=== PATIENT | female | born 1990 | race African-American/Black ===

== ENCOUNTER 2019-12-27 23:34 | Inpatient (IN) ==
[2019-12-27 23:49] VITALS: BMI 36.4
[2019-12-28 00:10] LABS: BILIRUBIN,URINE NEGATIVE (NEGATIVE); BLOOD/HEMOGLOBIN,URINE 3+ (NEGATIVE); GLUCOSE, URINE NEGATIVE (NEGATIVE); KETONES,URINE 4+ (NEGATIVE); LEUKOCYTE ESTERASE ,URINE 1+ (NEGATIVE); NITRITES,URINE NEGATIVE (NEGATIVE); PROTEIN,URINE 2+ (NEGATIVE); UROBILINOGEN,URINE NORMAL (NORMAL)
[2019-12-28 00:13] LABS: APPEARANCE,URINE CLEAR (CLEAR); BACTERIA,URINE TRACE /HPF (NEGATIVE); COLOR,URINE YELLOW (YELLOW); SQUAMOUS EPITHELIAL CELL,UR FEW /HPF (NEGATIVE)
[2019-12-28] MEDS ORDERED: D5LR 1L W PITOCIN 10 UNITS/L 10 UNITS/1,000 ML BAG IV PRN (00:20)
[2019-12-28] MEDS ORDERED: REGLAN INJ 10 MG VIAL IVP PRN (00:20)
[2019-12-28] MEDS ORDERED: DILAUDID INJ IVP PRN (00:20)
[2019-12-28] MEDS ORDERED: PITOCIN IVP ONE (00:20)
[2019-12-28] MEDS ORDERED: PHENERGAN INJ 25 MG IM PRN ×2 (00:20→01:20)
[2019-12-28] MEDS ORDERED: AMPICILLIN VIAL 2 GRAM 2 G in NS 100 ML IV + SPIKE MINIBAG* 100 ML IV SCH (00:22)
[2019-12-28 00:23] LABS: AMNISURE ROM TEST THERE IS A RUPTURE (NO RUPTURE)
[2019-12-28] MEDS ORDERED: AMPICILLIN VIAL 2 GRAM ONE (00:26)
[2019-12-28] MEDS ORDERED: NS 100 ML IV 100 ML IV ONE (00:26)
[2019-12-28] MEDS ORDERED: PITOCIN ONE (00:27)
[2019-12-28] MEDS ORDERED: BETADINE SOLN ONE (00:27)
[2019-12-28] MEDS ORDERED: D5 1/2 NS 1000 ML 1,000 ML IV ONE (00:27)
[2019-12-28] MEDS ORDERED: D5LR 1L W PITOCIN 10 UNITS/L 10 UNITS/1,000 ML BAG IV ONE (00:28)
[2019-12-28] MEDS ORDERED: D5 1/2 NS 1L W PITOCIN 20 UNITS/L 20 UNITS/1,000 ML BAG IV ONE (00:28)
[2019-12-28] MEDS ORDERED: STADOL INJ ONE (00:39)
[2019-12-28 00:56] LABS: BASOPHILS % (AUTO) 0.3 % (0.2-1.0); EOSINOPHILS # (AUTO) 0.1 x10^3/uL (0.0-0.2); HEMATOCRIT 34.7 % (36.0-47.0); HEMOGLOBIN 11.4 g/dL (12.0-16.0); LYMPHOCYTES # (AUTO) 3.4 X10^3/uL (1.3-2.9); LYMPHOCYTES % (AUTO) 28.9 % (21.0-51.0); MEAN CORPUSCULAR HEMOGLOBIN 28.2 pg (27.0-34.0); MEAN CORPUSCULAR VOLUME 85.6 fL (80.0-100.0); MEAN PLATELET VOLUME 7.2 fL (7.4-11.0); MONOCYTES # (AUTO) 0.8 x10^3/uL (0.3-0.8); NEUTROPHILS # (AUTO) 7.4 x10^3/uL (2.2-4.8); NEUTROPHILS % (AUTO) 62.8 % (42.0-75.0); PLATELET COUNT 281 X10^3/uL (150.0-450.0); RED BLOOD COUNT 4.05 X10^6/uL (3.5-5.4); RED CELL DISTRIBUTION WIDTH 14.3 % (11.6-16.5); WHITE BLOOD COUNT 11.8 X10^3/uL (3.6-10.0)
[2019-12-28 00:59] LABS: BLOOD UREA NITROGEN 6 mg/dL (7-18); CALCIUM 8.6 mg/dL (8.5-10.1); CARBON DIOXIDE 21.1 mmol/L (21-32); CHLORIDE 102 mmol/L (98-107); COR NA(FOR HYPERGLY) 134 mmol/L (136-145); CREATININE 0.62 mg/dL (0.55-1.02); SODIUM 134 mmol/L (136-145); eGFR NON BLACK RACES > 60 (>60)
[2019-12-28] MEDS ORDERED: D5 1/2 NS 1000 ML 1,000 ML IV SCH (01:00)
[2019-12-28] MEDS: D5 1/2 NS 1000 ML 1,000 ML with PITOCIN 20 UNITS IV SCH ×6 (01:00→18:48)
[2019-12-28] MEDS ORDERED: MOTRIN TAB 800 MG PO PRN (01:20)
[2019-12-28] MEDS ORDERED: AFLURIA II4 or FLUARIX II4 IM ONE (01:31)
[2019-12-28] MEDS ORDERED: DERMOPLAST PAIN RELIEF SPRAY TOP PRN (02:01)
[2019-12-28] MEDS ORDERED: MILK OF MAGNESIA PO PRN (02:01)
[2019-12-28] MEDS ORDERED: ADACEL or BOOSTRIX TDaP VACCINE IM ONE ×2 (02:01→05:18)
[2019-12-28] MEDS ORDERED: AMBIEN PO PRN (02:01)
[2019-12-28] MEDS ORDERED: AMPICILLIN VIAL 1 GRAM 1 G in NS 50 ML IV + SPIKE MINIBAG* 50 ML IV SCH (04:22)
[2019-12-28 05:23] LABS: HEMATOCRIT 36.4 % (36.0-47.0); HEMOGLOBIN 11.8 g/dL (12.0-16.0)
[2019-12-28] MEDS: PRENATAL PLUS PO SCH (09:45)
[2019-12-29] MEDS: D5 1/2 NS 1000 ML 1,000 ML with PITOCIN 20 UNITS IV SCH ×4 (02:12→10:31)
[2019-12-29] MEDS ORDERED: DEPO-PROVERA CONTRACEPTIVE INJ IM ONE (07:34)
[2019-12-29] MEDS: PRENATAL PLUS PO SCH (08:26)
[2019-12-29 13:29] VITALS: BP 138/99
== END 2019-12-29 12:20 | disposition home or self-care (01) | DRG 807 ==
LOC: ER 23:35 → LD 12-28 00:12 → MED/SURG 12-28 02:06
PROVIDERS: ADMIT Specialist; ATTEND Specialist
DX: Z37.0 Single live birth; Z3A.36 36 weeks gestation of pregnancy; Z23 Encounter for immunization; O80 Encounter for full-term uncomplicated delivery